=== PATIENT | female | born 1990 | race Hispanic/Latino ===

== ENCOUNTER 2018-07-09 23:14 | Inpatient (IN) | payer OTHER ==
[2018-07-09 23:26] VITALS: O2SAT 97
--- NOTE | 2018-07-09 23:28 | C.PDOC ---
History Of Present Illness Patient presents as a transfer from [facility] where she was medically cleared and accepted in transfer for unspecified depressive disorder by Dr. Mena. Denies any complaints at this time. Time Seen by Provider: 07/09/18 23:26 Chief Complaint (Nursing): Psychiatric Evaluation History Per: Other ([facility]) History/Exam Limitations: no limitations Onset/Duration Of Symptoms: Hrs Current Symptoms Are (Timing): Still Present Suicide/Self Injury Attempted (Context): None Modifying Factor(s): None Associated Symptoms: Depression Involuntary Hold By: None Recent travel outside of the [place]: No Additional History Per: Patient Past Medical History Reviewed: Historical Data, Nursing Documentation, Vital Signs Vital Signs: Last Vital Signs Temp 97.6 F 07/09/18 23:19 Pulse 74 07/09/18 23:19 Resp 20 07/09/18 23:19 BP 101/69 07/09/18 23:19 Pulse Ox 97 07/09/18 23:19 - Medical History PMH: Anxiety, Asthma, Depression, Kidney Stones, Post Traumatic Stress Disorder, Chronic Kidney Disease, Schizophrenia, Seizures, Sleep Apnea Family History: States: No Known Family Hx - Social History Hx Alcohol Use: No Hx Substance Use: No - Immunization History Hx Tetanus Toxoid Vaccination: No Hx Influenza Vaccination: No Hx Pneumococcal Vaccination: No Review Of Systems Constitutional: Negative for: Fever, Chills Cardiovascular: Negative for: Chest Pain, Palpitations Respiratory: Negative for: Cough, Shortness of Breath Gastrointestinal: Negative for: Nausea, Vomiting Neurological: Negative for: Weakness, Numbness Physical Exam - Physical Exam Appears: Non-toxic Skin: Warm, Dry Head: Normacephalic Oral Mucosa: Moist Chest: Symmetrical, No Tenderness Cardiovascular: Rhythm Regular Respiratory: Normal Breath Sounds, No Rales, No Rhonchi, No Wheezing Gastrointestinal/Abdominal: Soft, No Tenderness Neurological/Psych: Oriented x3 ED Course And Treatment O2 Sat by Pulse Oximetry: 97 (Room air) Pulse Ox Interpretation: Normal Disposition Discussed With : Mayo Mena Comment: Accepted the pt on his service and took over the care at 11:39 PM Doctor Will See Patient In The: Hospital Counseled Patient/Family Regarding: Studies Performed, Diagnosis - Disposition Disposition: HOSPITALIZED Disposition Time: 23:27 Condition: FAIR - POA Present On Arrival: None - Clinical Impression Clinical Impression: Bipolar 1 disorder - Scribe Statement The provider has reviewed the documentation as recorded by the Scribe Fareed Pierre All medical record entries made by the Scribe were at my direction and personally dictated by me. I have reviewed the chart and agree that the record accurately reflects my personal performance of the history, physical exam, medical decision making, and the department course for this patient. I have also personally directed, reviewed, and agree with the discharge instructions and disposition. Decision To Admit - Pt Status Changed To: Hospital Disposition Of: Inpatient - Admit Certification Admit to Inpatient:: After my assessment, the patient will require hospitalization for at least two midnights. This is because of the severity of symptoms shown, intensity of services needed, and/or the medical risk in this patient being treated as an outpatient. - InPatient: Physician Admission Certification: I certify that this patient requires 2 or more midnights of care for the following reason:: After my assessment, the patient will require hospitalization for at least two midnights. This is because of the severity of symptoms shown, intensity of services needed, and/or the medical risk in this patient being treated as an outpatient. - . Bed Request Type: Psychiatry Admitting Physician: Mayo Mena Patient Diagnosis: Bipolar 1 disorder
--- NOTE | 2018-07-10 06:35 | PCM.BM ---
<Meet Wilder - Last Filed: 07/10/18 06:33> Treatment Plan Problems - Problems identified on initial assessmt Social Isolation Date Initiated: 07/10/18 Time Initiated: 00:10 Assessment reference: NA Status: Active Feelings of Worthlessness Date Initiated: 07/10/18 Time Initiated: 00:10 Assessment reference: NA Status: Active Treatment assets and liabiliti Patient Assests: adapts well, cooperative, self-reliant, ADL independent, negotiates basic needs, cognitively intact Patient Liabilities: live alone, financial problems - Milieu Protocol Maintain good personal hygiene: daily Encourage regular showers, daily Remind patient to perform daily oral care, daily Assist patient to perform ADL's Conduct patient checks and document Observation sheet: Q15 minutes Maintain personal safety: every shift Educate patient to report safety concerns to staff, every shift Monitor environment for contraband/sharps Medication safety: Monitor for expected outcome, potential side effects: every shift, Assess barriers to learning: every shift, Assess readiness for medication education: every shift <Siva Hill - Last Filed: 07/10/18 11:29> - Diagnosis (1) Bipolar 1 disorder Status: Acute Interventions: 07/10/18 11:30 * Assess/adjust medications daily and /or as needed * See patient on an individual basis 7x/week to assess level of manic behaviors and stability * Discuss risks, benefits, side effects and alternatives of medications * <Annamaria Scales - Last Filed: 07/10/18 12:40> Family Contact Family involvement: Patient does not wish Family/SO involvement Family contact: Patient declines to allow family contact at present - Goals for Treatment Patient goals for treatment: "I want to go to an outpatient program." Discharge/Continuing Care - Education Needs Education Needs: Patient Medication, Patient Diagnosis/Disease Process, Patient Coping Skills, Patient Placement options, Patient Community resources - Discharge Discharge Criteria: Free of Suicidal thoughts, Free of paranoid thoughts, Normal sleep pattern, Ability to care for self, Reduction of target symptoms Discharge to:: Other - Treatment Team Participation Discussed with Family/SO: No Was Patient/Family/SO present at Treatment Team Meeting: Yes
[2018-07-10 06:43] VITALS: TEMP 98.8
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
[2018-07-10] MEDS ORDERED: Pneumococcal 23-Valent Vaccine SC ONE (14:58)
[2018-07-10] MEDS ORDERED: Influenza Vaccine 60 mcg/0.5 mL SYR (4YR UP) IM ONE (14:59)
--- NOTE | 2018-07-11 10:28 | PCM.PYCHPN ---
Psychiatric Progress Note - Psychiatric Progress Note Patient seen today, length of contact: 15 min Patient Chief Complaint: I was feeling depressed and suicidal..' Problems Identified/Issues Discussed: Patient was seen and evaluated, chart reviewed and discussed with staff. Patient remained increasingly depressed, isolative and withdrawn. She still reports feelings of hopelessness and helplessness. She still reports auditory hallucination, command type to kill herself. She remained isolated and withdrawn. However she is taking medication and denies any side effects. Supportive therapy was given Patient was seen and accepted by [facility] as involuntary commitment Medication Change: Yes Medical Record Reviewed: Yes Mental Status Examination - Cognitive Function Orientation: Person, Place, Situation, Time Memory: Intact Attention: Poor Concentration: Poor Association: Loose Fund of Knowledge: Poor - Mood Mood: Depressed, Anxious - Affect Affect: Constricted, Depressed - Speech Speech: Soft - Formal Thought Process Formal Thought Process: Hallucinations, Delusions, Paranoia, Loosening of associations - Suicidal Ideation Suicidal Ideation: No - Homicidal Ideation Homicidal Ideation: No Goal/Treatment Plan - Goal/Treatment Plan Need for Continued Stay: Severe depression anxiety, Severe functional impairment Progress Toward Problem(s) and Goals/Treatment Plan: Schizoaffective disorder bipolar type CBT Psychoeducation Supportive therapy and group therapy Trazodone 50 mg p.o. nightly Topamax 50 mg p.o. twice daily Lamictal 50 mg p.o. twice daily Risperdal 2 mg p.o. nightly Patient was accepted by [facility] -awaiting for bed
[2018-07-11 10:45] VITALS: RESP 20
[2018-07-11 16:15] VITALS: BP 117/78; PULSE 68
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
[2018-07-13] MEDS ORDERED: Influenza Vaccine 60 mcg/0.5 mL SYR (4YR UP) IM ONE (10:00)
[2018-07-13] MEDS ORDERED: Pneumococcal 23-Valent Vaccine IM ONE (10:00)
== END 2018-07-11 21:58 | DRG 430 ==
LOC: C.ER 23:14 → C.5E 23:27
PROVIDERS: ADMIT Psychiatry & Neurology Psychiatry; ATTEND Psychiatry & Neurology Psychiatry
PROC: GZHZZZZ Group Psychotherapy (ICD-10-PCS; principal; 2018-07-09)
PROC: GZ58ZZZ Individual Psychotherapy, Cognitive-Behavioral (ICD-10-PCS; 2018-07-09)
PROC: GZ56ZZZ Individual Psychotherapy, Supportive (ICD-10-PCS; 2018-07-09)
DX: F25.0 Schizoaffective disorder, bipolar type (principal); R56.9 Unspecified convulsions; F41.0 Panic disorder [episodic paroxysmal anxiety]; F60.3 Borderline personality disorder; F43.10 Post-traumatic stress disorder, unspecified; Z59.0 Homelessness; Z91.19 Patient's noncompliance with other medical treatment and regimen; Z91.5 Personal history of self-harm